=== PATIENT | male | born 1950 | race Caucasian/White ===

== ENCOUNTER 2018-04-26 10:15 | Inpatient (IN) | payer MEDICARE, BC ==
--- NOTE | 2018-04-25 16:23 | HP ---
HISTORY AND PHYSICAL DATE OF SURGERY: 04/26/2018 Hipolito Mary is a 67-year-old patient seen with painful left total knee arthroplasty, failing conservative treatment measures. Options were discussed with him. He elected to proceed with revision left total knee arthroplasty. Consent regarding the procedure was obtained. His preoperative medical clearance was provided Dr. Ansari. PAST MEDICAL HISTORY: Lcy-gneuupo-synkfddlk diabetes, hypertension, hyperlipidemia. PAST SURGICAL HISTORY: Left knee lateral unicompartmental arthroplasty. DAILY MEDICATIONS: Glipizide, Januvia, losartan, Metformin, simvastatin. ALLERGIES: None reported. SOCIAL HISTORY: The patient denies current tobacco use. PHYSICAL EXAMINATION: Evaluation of the left knee: His range of motion is -2/3 to 115 degrees. There is tenderness along the medial joint line. Crepitus medial patellofemoral compartment. Ligaments stable. Hip rotation without pain. Distal neurovascular exam is intact. Left knee radiographs reveal a lateral unicompartmental arthroplasty with moderate to severe medial compartment osteoarthritis and moderate to severe patellofemoral compartment osteoarthritis. IMPRESSION: 1. Painful left knee unicompartmental arthroplasty. 2. Hypertension. 3. Hyperlipidemia. 4. Lbs-bpblkkq-mirglbjdu diabetes. PLAN: Revision left total knee arthroplasty. MMODL / IJN: [id number] /
[~2018-04-26 10:15] MED LIST: ACETAMINOPHEN TAB 500 MG TAB PO ONE; DEXAMETHASONE SOD PHOSPHATE 10 MG/ML 1 ML VIAL IV ONE; HYDROmorphone 0.5 MG/0.5 ML SYRINGE IVP PRN; LACTATED RINGERS 1,000 ML IV SCH; MELOXICAM 7.5 MG TAB PO ONE; MIDAZOLAM (PF) 2 MG/2 ML VIAL IV PRN; ONDANSETRON 4 MG/2 ML VIAL IVP ONE; SCOPOLAMINE 1.5MG/72HR PATCH TRANSDERM ONE; ceFAZolin IN SWFI 2 GM/20 ML SYRINGE IVP ONE
[2018-04-26 11:51] LABS: Glucose,Whole Blood 180 mg/dL (75-99)
[2018-04-26] MEDS ORDERED: MIDAZOLAM (PF) 2 MG/2 ML VIAL IVP ONE (12:23)
[2018-04-26] MEDS ORDERED: fentaNYL (PF) 50 MCG/ML 2 ML AMP IVP ONE (12:23)
[2018-04-26] MEDS ORDERED: ROPIVACAINE 246.25 MG, EPINEPHrine 0.5 MG, KETOROLAC 30 MG, cloNIDine HCL/PF 80 MCG, WA... MISCELLANE ONE ×5 (14:06)
[2018-04-26] MEDS ORDERED: PROPOFOL 10 MG/ML 20 ML VIAL IV ONE (14:13)
[2018-04-26] MEDS ORDERED: ePHEDrine SULFATE/0.9% NACL/PF 50 MG/5 ML SYRINGE IV ONE (14:13)
[2018-04-26] MEDS ORDERED: fentaNYL (PF) 50 MCG/ML 2 ML AMP ONE (14:13)
[2018-04-26] MEDS ORDERED: MIDAZOLAM 2 MG/2 ML VIAL ONE (14:13)
[2018-04-26] MEDS ORDERED: TRANEXAMIC ACID 1,000 MG/10 ML VIAL ONE (14:13)
[2018-04-26] MEDS ORDERED: PHENYLEPHRINE-0.9% NACL SYG 1 MG/10 ML SYRINGE ONE (14:13)
[2018-04-26] MEDS ORDERED: SODIUM CHLORIDE 0.9% 100 ML BAG ONE (14:13)
[2018-04-26] MEDS: TRANEXAMIC ACID 1,000 MG in SODIUM CHLORIDE 0.9% 50 ML IVPB ONE ×6 (14:30→17:02)
[2018-04-26] MEDS ORDERED: ceFAZolin 3,000 MG in SODIUM CHLORIDE 0.9% IRRIGATIO 3,000 ML IRRIGATION ONE (14:30)
[2018-04-26] MEDS ORDERED: LACTATED RINGERS 1,000 ML IV ONE (14:53)
[2018-04-26] MEDS ORDERED: HYDROcodone/APAP 5-325MG 1 EACH TAB PO PRN (17:31)
[2018-04-26] MEDS ORDERED: NALOXONE 0.4 MG/ML 1 ML VIAL IV PRN (17:31)
[2018-04-26] MEDS ORDERED: HYDROmorphone 0.5 MG/0.5 ML SYRINGE IVP PRN ×2 (17:31)
[2018-04-26] MEDS ORDERED: ONDANSETRON 4 MG/2 ML VIAL IVP PRN (17:31)
--- NOTE | 2018-04-26 17:31 | P.OP ---
Date of Procedure: 04/26/18 Preoperative Diagnosis: Painful left knee lateral unicompartmental arthroplasty Postoperative Diagnosis: Same Procedure(s) Performed: Revision left total knee arthroplasty Implants: 1. Depuy Sigma femoral TC3 size 5 left cemented femur with medial and lateral 4 mm mm posterior augments 2. Depuy MTB revision size 4 cemented tibial tray with a 45 mm porous-coated metaphyseal sleeve and a 75 mm x 16 mm fluted stem 3. Depuy Sigma polyethylene rotating platform TC3 size 5 12.5 mm rotating platform tibial insert 4. Depuy oval dome patella 41 mm cemented Anesthesia: regional (Adductor canal catheter), local, spinal Surgeon: Ian Rock Mechanical Planner #1: Hakan Love Estimated Blood Loss (ml): 85 Pathology: other (Bone/femoral and tibial components) Condition: stable Disposition: PACU Indications for Procedure: 67-year-old patient seen with a painful left knee lateral unicompartmental arthroplasty. After we discussed treatment options, he elected to proceed with revision total knee arthroplasty. Operative Findings: see description of procedure Description of Procedure: The patient was taken to the operative suite. The patient underwent a spinal anesthetic by the department of anesthesia after having had placed and adductor canal catheter for postoperative pain control. The patient did receive preoperative IV antibiotics as well as TXA. The extremity was elevated and tourniquet insufflated to 300. A standard midline incision was made sharply through skin. Dissection was taken to the extensor mechanism. Medial arthrotomy was performed. The knee was flexed and patella everted. There was advanced osteoarthritis the medial compartment. There was significant osteophytes patellofemoral compartment. I removed the lateral femoral component was some bone loss. I remove the tibial polyethylene which left a fairly big deficit laterally. I began working on the femur reducing intramedullary guide and appropriate femoral cuts were made. I now made an appropriate box cut for prosthesis. I turned my attention to the tibia. We began reaming intramedullary into reached the appropriate size. I used a freshen up cut guide for the proximal tibia. I made sure was distal enough to help with that large lateral deficit. We then began broaching for our metaphyseal sleeve. Once I receive appropriate size was left in position. At this point I noted I would need 4 mm posterior augments off the posterior aspect of the femoral condyle both medial laterally. We now placed all trial components in position. The knee was taken through range of motion with full range of motion good overall stability. The patella was everted and a flush cut was made with patellar quad tendon. Appropriate size guide was position and appropriate drill holes were made. At this point all guides and trial components were removed. The wound was irrigated copiously with pulse lavage Irrigation. We did take a little time to remove the previous components into make our appropriate cuts and therefore at this point the tourniquet was released allowing some blood flow to the extremity. We opened up all the components and assembled them on the back table. Once allowing good blood flow and appropriate hemostasis the extremity was elevated and tourniquet was insufflated again to 300. We then mixed our antibiotic bone cement. We now introduced our tibial component position with just cement behind the tibial component. We then placed our appropriate size polyethylene rotating platform insert. We now cemented on our femoral component. We removed any excess methyl methacrylate. The patellar component was now cemented down and held in position. The wound was irrigated with pulse lavage mechanical irrigation. The extremity was held in extension until the methyl methacrylate completed hardened. At this point the tourniquet was released. We gave the patient second dose of TXA. Additional hemostasis was achieved via electrocautery. The wound was again irrigated with pulse lavage Irrigation. The extensor mechanism was repaired with #3 Vicryl. The repair was checked with range of motion on good stability and good repair. The subcu soft tissues repaired with 2-0 Vicryl. The skin was approximated with a running subcuticular stitch followed by pernio and Dermabond. Sterile dressings were applied. Followed by loose web bone Toy bandage. The patient was awakened and transferred to a bed and recovery stable condition. Chris POLLACK assisted with this complex procedure.
--- NOTE | 2018-04-26 18:11 | XR ---
PROCEDURE: XR knee limited LT - 2V DATE AND TIME: 04/26/2018 6:07 PM CLINICAL INDICATION: PHH; Evaluation for Postop abnormality and alignment TECHNIQUE: Department protocol COMPARISON: None FINDINGS: TKR is intact with anatomic positioning and alignment. Postprocedure changes noted, with no unexpected findings. IMPRESSION: Postop left knee 2 views
[2018-04-26] MEDS ORDERED: ROPIVACAINE 1,100 MG, SODIUM CHLORIDE 0.9% 500 ML 330 ML MISCELLANE PRN ×2 (18:50)
[2018-04-26] MEDS: traMADol 50 MG TAB PO SCH ×2 (19:04→21:25)
[2018-04-26 19:28] VITALS: BMI 25.7
[2018-04-26] MEDS ORDERED: ALBUTEROL NEBULIZED 2.5 MG/3 ML INHALATION PRN (19:30)
[2018-04-26] MEDS: HYDROcodone/APAP 5-325MG 1 EACH TAB PO PRN (19:52)
[2018-04-26] MEDS: METOPROLOL TARTRATE 50 MG TAB PO SCH (20:40)
[2018-04-26] MEDS: ATORVASTATIN 40 MG TAB PO SCH (20:40)
[2018-04-26] MEDS: ENOXAPARIN 30 MG/0.3 ML SYRINGE SQ SCH (20:40)
[2018-04-26] MEDS: SENNOSIDES-DOCUSATE SODIUM 1 EACH TAB PO SCH (20:40)
[2018-04-26] MEDS: LACTATED RINGERS 1,000 ML IV SCH (20:42)
[2018-04-26] MEDS: INSULIN ASPART 100 UNIT/ML 1 ML 10 ML VIAL SQ SCH (20:55)
[2018-04-26 21:04] LABS: Glucose,Whole Blood 254 mg/dL (75-99)
[2018-04-26] MEDS: ceFAZolin IN SWFI 2 GM/20 ML SYRINGE IVP SCH (23:44)
[2018-04-27] MEDS: LACTATED RINGERS 1,000 ML IV SCH ×3 (03:31→23:35)
[2018-04-27] MEDS: HYDROcodone/APAP 5-325MG 1 EACH TAB PO PRN ×3 (04:19→23:01)
[2018-04-27 07:02] LABS: Glucose,Whole Blood 199 mg/dL (75-99)
--- NOTE | 2018-04-27 07:11 | P.PN ---
Progress Note - Text Progress Note Date: 04/27/18 The patient is status post[ 1] adductor canal catheter placement. The catheter was placed for postoperative pain control, status post total [left knee] arthroplasty. Ropivacaine 0.2% is infusing at[ 4 ] mLs per hour. The patient has no complaints of[ left] lower extremity numbness or weakness. Patient's VAS score is[ 4 ]-10. Assessment: Patient's adductor canal catheter is in place and working appropriately. Plan: continue infusion and adjust it as needed.
[2018-04-27] MEDS: SPIRONOLACTONE 25 MG TAB PO SCH (08:06)
[2018-04-27] MEDS: MELOXICAM 7.5 MG TAB PO SCH (08:06)
[2018-04-27] MEDS: traMADol 50 MG TAB PO SCH ×4 (08:06→23:01)
[2018-04-27] MEDS: METOPROLOL TARTRATE 50 MG TAB PO SCH ×2 (08:06→20:14)
[2018-04-27] MEDS: ISOSORBIDE MONONITRATE ER 30 MG TAB.ER.24H PO SCH (08:06)
[2018-04-27] MEDS: FENOFIBRATE 160 MG TAB PO SCH (08:06)
[2018-04-27] MEDS: ENOXAPARIN 30 MG/0.3 ML SYRINGE SQ SCH ×2 (08:07→20:15)
[2018-04-27] MEDS: PANTOPRAZOLE 40 MG TABLET PO SCH (08:07)
[2018-04-27] MEDS: INSULIN ASPART 100 UNIT/ML 1 ML 10 ML VIAL SQ SCH ×4 (08:07→20:14)
[2018-04-27] MEDS: SIMETHICONE 80 MG CHEWABLE PO SCH ×3 (08:08→17:17)
[2018-04-27 08:28] LABS: Basophils % (A) 0 %; Eosinophils # (A) 0.1 k/uL (0-0.7); Eosinophils % (A) 1 %; HCT 28.6 % (39.0-53.0); HGB 9.4 gm/dL (13.0-17.5); Lymphocytes # (A) 1.4 k/uL (1.0-4.8); Lymphocytes % (A) 16 %; MCH 29.7 pg (25.0-35.0); Mean Platelet Volume 6.3; Monocytes # (A) 0.6 k/uL (0-1.0); Monocytes % (A) 6 %; Neutrophils # (A) 6.6 k/uL (1.3-7.7); Neutrophils % (A) 73 %; Platelet Count 260 k/uL (150-450); RBC 3.18 m/uL (4.30-5.90); RDW 14.3 % (11.5-15.5)
[2018-04-27] MEDS ORDERED: LOSARTAN 50 MG TAB PO SCH (09:00)
--- NOTE | 2018-04-27 12:05 | P.PN ---
Subjective Progress Note Date: 04/27/18 Principal diagnosis: Status post revision left total knee arthroplasty Patient evaluated at bedside today, he is resting comfortably. He has ambulated with physical therapy.. He denies any fevers or chills. Denies any chest pain or shortness of breath. Objective - Vital Signs Vital signs: Vital Signs Temp 98.4 F 04/27/18 00:46 Pulse 69 04/27/18 08:00 Resp 14 04/27/18 08:00 BP 101/58 04/27/18 00:46 Pulse Ox 93 L 04/27/18 00:46 Intake & Output 04/26/18 04/27/18 04/27/18 18:59 06:59 18:59 Intake Total 1721 Output Total 85 Balance 1636 Weight 96 kg Intake: IV 1721 Output: Estimated Blood Loss 85 - Exam Left lower extremity: Incision is clean, dry, and intact. The exofin fusion tape is in good condition. There is minimal soft tissue swelling and ecchymosis surrounding the medial and lateral aspects of the incision. Calf is soft, no tenderness with palpation. Plantar flexion, dorsiflexion, EHL, FHL are intact. Sensory exam to light touch throughout the extremity is intact, dorsal pedis pulses 2+. - Labs CBC & Chem 7: 04/27/18 07:30 Labs: Abnormal Lab Results - Last 24 Hours (Table) 04/26/18 04/27/18 04/27/18 Range/Units 20:52 06:50 07:30 RBC 3.18 L (4.30-5.90) m/uL Hgb 9.4 L (13.0-17.5) gm/dL Hct 28.6 L (39.0-53.0) % POC Glucose (mg/dL) 254 H 199 H (75-99) mg/dL Assessment and Plan Plan: Assessment: 1. Postop day 1 status post revision left total knee arthroplasty Plan: Pain control, continue current medication GI and DVT prophylaxis, continue current medication Wound care was discussed Continue work with physical therapy Encourage incentive spirometer Medical recommendations Discharge planning: Patient has multiple sets of stairs in his home. Patient's recently had shoulder surgery. Patient will need assistance with activities of daily living. Plan for discharge to rehab on 04/29/2018 Time with Patient: Less than 30
[2018-04-27] MEDS: LINAGLIPTIN 5 MG TABLET PO SCH (12:22)
[2018-04-27] MEDS: HYDROmorphone 0.5 MG/0.5 ML SYRINGE IVP PRN (12:22)
[2018-04-27] MEDS: ceFAZolin IN SWFI 2 GM/20 ML SYRINGE IVP SCH (12:26)
[2018-04-27 12:27] LABS: Glucose,Whole Blood 257 mg/dL (75-99)
--- NOTE | 2018-04-27 14:23 | P.CONS ---
History of Present Illness - Reason for Consult Recommenda regarding anti hypertensive cations and type 2 diabetes mellitu - History of Present Illness 67-year-old pleasant gentleman underwent the left knee arthroplasty. Patient doesn't have any surgical drain feeling well passed gas did not move his bowel. Patient denied any fever chills nausea vomiting chest pain dysuria. Does have multiple medical problems will be described below. Has some numbness in the surgical site area which is expected Review of Systems REVIEW OF SYSTEMS: CONSTITUTIONAL: No fever, no malaise, no fatigue. HEENT: No recent visual problems or hearing problems. Denied any sore throat. CARDIOVASCULAR: No chest pain, orthopnea, PND, no palpitations, no syncope. PULMONARY: No shortness of breath, no cough, no hemoptysis. GASTROINTESTINAL: No diarrhea, no nausea, no vomiting, no abdominal pain. NEUROLOGICAL: No headaches, no weakness, no numbness. HEMATOLOGICAL: Denies any bleeding or petechiae. GENITOURINARY: Denies any burning micturition, frequency, or urgency. MUSCULOSKELETAL/RHEUMATOLOGICAL: Denies any joint pain, swelling, or any muscle pain. ENDOCRINE: Denies any polyuria or polydipsia. The rest of the 14-point review of systems is negative. Past Medical History Past Medical History: Coronary Artery Disease (CAD), Diabetes Mellitus, Hyperlipidemia, Hypertension, Osteoarthritis (OA), Sleep Apnea/CPAP/BIPAP Additional Past Medical History / Comment(s): has cpap, "gas, frequent burping" , hx gout, History of Any Multi-Drug Resistant Organisms: None Reported Past Surgical History: Back Surgery, Heart Catheterization, Joint Replacement, Orthopedic Surgery, Prostate Surgery, Tonsillectomy Additional Past Surgical History / Comment(s): JUSTIN KNEE REPLACEMENT, JUSTIN CARPAL TUNNEL, justin shoulder ROTATOR CUFF, ANTERIOR TOTAL LEFT HIP; arteriogram , back surgery x 3 Past Anesthesia/Blood Transfusion Reactions: Previous Problems w/ Anesthesia Additional Past Anesthesia/Blood Transfusion Reaction / Comm: PT STATES WAS TOLD FROM PREVIOUS SX THAT IS DIFFICULT INTUBATION(one surgery > 20 yrs ago) AND NEEDS "SMALLER TUBE". Past Psychological History: No Psychological Hx Reported Smoking Status: Former smoker Past Alcohol Use History: Rare Additional Past Alcohol Use History / Comment(s): SMOKER AGE 20-40, 1 pack/week Past Drug Use History: None Reported - Past Family History Father Family Medical History: Cancer, Pulmonary Embolus Additional Family Medical History / Comment(s): brain Mother Family Medical History: Diabetes Mellitus Brother(s) Family Medical History: Diabetes Mellitus Medications and Allergies Home Medications Medication Instructions Recorded Confirmed Type Aspirin 81 mg PO DAILY 12/14/13 04/26/18 History Losartan Potassium 100 mg PO QAM 12/14/13 04/26/18 History Simvastatin [Zocor] 80 mg PO HS 12/14/13 04/26/18 History Spironolactone [Aldactone] 25 mg PO QAM 12/14/13 04/26/18 History glipiZIDE [Glucotrol] 20 mg PO BID-W/MEALS 12/14/13 04/26/18 History metFORMIN HCL 1,000 mg PO BID-W/MEALS 12/14/13 04/26/18 History Omeprazole [PriLOSEC] 20 mg PO BID 02/12/15 04/26/18 History Albuterol Inhaler [Ventolin Hfa 1 - 2 puff INHALATION RT-Q6H PRN 03/09/17 History Inhaler] Fenofibrate Nanocrystallized 145 mg PO DAILY 03/09/17 04/26/18 History [Fenofibrate] Metoprolol Tartrate [Lopressor] 100 mg PO BID 03/09/17 04/26/18 History Saxagliptin HCl [Onglyza] 5 mg PO AC-LUNCH 03/09/17 04/26/18 History Isosorbide Mononitrate ER [Imdur] 30 mg PO DAILY 04/19/18 04/26/18 History Simethicone Chew [Mylicon Chew] 160 mg PO AC-TID 04/19/18 04/26/18 History Hydrocodone/Acetaminophen [[place] 1 tab PO Q6H PRN 04/26/18 04/26/18 History 10-325] Allergies Allergy/AdvReac Type Severity Reaction Status Date / Time No Known Allergies Allergy Verified 04/26/18 18:37 Physical Exam Vitals: Vital Signs Temp Pulse Resp BP Pulse Ox 04/27/18 08:00 69 14 04/27/18 07:00 97.6 F 64 16 130/67 96 04/27/18 03:49 69 14 04/27/18 00:46 98.4 F 69 14 101/58 93 L 01/22/19 00:00 18 04/26/18 20:30 81 121/57 04/26/18 20:15 88 106/57 04/26/18 20:00 83 121/63 04/26/18 19:45 77 110/59 04/26/18 19:30 91 117/75 04/26/18 19:15 82 116/62 04/26/18 19:00 79 120/58 04/26/18 18:45 85 102/57 04/26/18 18:28 98.3 F 84 118/56 94 L 04/26/18 18:15 83 18 109/54 95 04/26/18 18:00 88 16 124/59 95 04/26/18 17:45 99.0 F 86 16 121/58 95 Intake and Output 04/26/18 04/27/18 04/27/18 22:59 06:59 14:59 Intake Total 60 Output Total 85 Balance -25 Intake: IV 60 Output: Estimated Blood Loss 85 Other: Weight 96 kg PHYSICAL EXAMINATION: GENERAL: The patient is alert and oriented x3, not in any acute distress. Well developed, well nourished. HEENT: Pupils are round and equally reacting to light. EOMI. No scleral icterus. No conjunctival pallor. Normocephalic, atraumatic. No pharyngeal erythema. No thyromegaly. CARDIOVASCULAR: S1 and S2 present. No murmurs, rubs, or gallops. PULMONARY: Chest is clear to auscultation, no wheezing or crackles. ABDOMEN: Soft, nontender, nondistended, normoactive bowel sounds. No palpable organomegaly. MUSCULOSKELETAL: No joint swelling or deformity. EXTREMITIES: Deffered to orthopedic surgery NEUROLOGICAL: Gross neurological examination did not reveal any focal deficits. SKIN: No rashes. Results CBC & Chem 7: 04/27/18 07:30 Labs: Abnormal Lab Results - Last 24 Hours (Table) 04/26/18 04/27/18 04/27/18 Range/Units 20:52 06:50 07:30 RBC 3.18 L (4.30-5.90) m/uL Hgb 9.4 L (13.0-17.5) gm/dL Hct 28.6 L (39.0-53.0) % POC Glucose (mg/dL) 254 H 199 H (75-99) mg/dL 04/27/18 Range/Units 12:16 RBC (4.30-5.90) m/uL Hgb (13.0-17.5) gm/dL Hct (39.0-53.0) % POC Glucose (mg/dL) 257 H (75-99) mg/dL Assessment and Plan Plan: -Postoperative day 1 left knee arthroplasty: Pain management due to prophylaxis as per primary service. -Coronary artery disease -Hypertension will continue with beta jayden but will cut down the losartan to 50 mg daily to prevent perioperative hypotension -Type 2 diabetes mellitus as patient is eating now patient will be initiated back on his oral hypoglycemic agents recheck his blood sugars discharge regimen will be decided on depending on his blood sugars here -Hyperlipidemia -Gastroesophageal reflux disease -Hyperlipidemia -Sleep apnea: Patient will continue his CPAP machine For above-mentioned chronic medical problems patient will be resumed on appropriate medication, medication reconciliation was done.
[2018-04-27 17:04] LABS: Glucose,Whole Blood 263 mg/dL (75-99)
[2018-04-27] MEDS: metFORMIN 500 MG TAB PO SCH (17:18)
[2018-04-27 20:00] LABS: Glucose,Whole Blood 237 mg/dL (75-99)
[2018-04-27] MEDS: ATORVASTATIN 40 MG TAB PO SCH (20:14)
[2018-04-27] MEDS: SENNOSIDES-DOCUSATE SODIUM 1 EACH TAB PO SCH (20:14)
[2018-04-28] MEDS: HYDROcodone/APAP 5-325MG 1 EACH TAB PO PRN ×2 (05:34→20:36)
--- NOTE | 2018-04-28 05:36 | P.PN ---
Progress Note - Text Progress Note Date: 04/28/18 Patient is postop day 2 catheter day #3 from total knee replacement. Pain is well controlled. Patient stated in the hospital because he lives 3 hours away and will likely be going home today. He denies any lower extremity numbness tingling or pain. Pump is working well. He is able to ambulate and his bowel and bladder function have returned, his site of the catheter is clean and dry
[2018-04-28 07:23] LABS: Glucose,Whole Blood 191 mg/dL (75-99)
[2018-04-28] MEDS: SIMETHICONE 80 MG CHEWABLE PO SCH ×3 (07:38→17:23)
[2018-04-28] MEDS: SPIRONOLACTONE 25 MG TAB PO SCH (07:38)
[2018-04-28] MEDS: PANTOPRAZOLE 40 MG TABLET PO SCH (07:38)
[2018-04-28] MEDS: metFORMIN 500 MG TAB PO SCH ×2 (07:38→17:23)
[2018-04-28] MEDS: METOPROLOL TARTRATE 50 MG TAB PO SCH ×2 (07:39→20:36)
[2018-04-28] MEDS: MELOXICAM 7.5 MG TAB PO SCH (07:39)
[2018-04-28] MEDS: traMADol 50 MG TAB PO SCH ×3 (07:39→17:23)
[2018-04-28] MEDS: ISOSORBIDE MONONITRATE ER 30 MG TAB.ER.24H PO SCH ×2 (07:39→07:40)
[2018-04-28] MEDS: ENOXAPARIN 30 MG/0.3 ML SYRINGE SQ SCH ×2 (07:40→20:35)
[2018-04-28] MEDS: INSULIN ASPART 100 UNIT/ML 1 ML 10 ML VIAL SQ SCH ×4 (07:40→20:37)
[2018-04-28] MEDS: FENOFIBRATE 160 MG TAB PO SCH (07:40)
[2018-04-28] MEDS ORDERED: LOSARTAN 50 MG TAB PO SCH (09:00)
--- NOTE | 2018-04-28 10:32 | P.PN ---
Subjective Progress Note Date: 04/28/18 Principal diagnosis: Status post revision left total knee arthroplasty Patient evaluated at bedside today, he is resting comfortably. He has ambulated with physical therapy.. He denies any fevers or chills. Denies any chest pain or shortness of breath. Objective - Vital Signs Vital signs: Vital Signs Temp 99.1 F 04/28/18 07:38 Pulse 73 04/28/18 08:00 Resp 16 04/28/18 08:00 BP 159/64 04/28/18 07:38 Pulse Ox 95 04/28/18 07:38 Intake & Output 04/27/18 04/28/18 04/28/18 18:59 06:59 18:59 Intake Total 1180 240 Balance 1180 240 Intake: Oral 1180 240 Other: Voiding Method Toilet Toilet # Voids 3 - Exam Left lower extremity: Incision is clean, dry, and intact. The exofin fusion tape is in good condition. There is minimal soft tissue swelling and ecchymosis surrounding the medial and lateral aspects of the incision. Calf is soft, no tenderness with palpation. Plantar flexion, dorsiflexion, EHL, FHL are intact. Sensory exam to light touch throughout the extremity is intact, dorsal pedis pulses 2+. - Labs CBC & Chem 7: 04/27/18 07:30 Labs: Abnormal Lab Results - Last 24 Hours (Table) 04/27/18 04/27/18 04/27/18 Range/Units 12:16 16:52 19:48 POC Glucose (mg/dL) 257 H 263 H 237 H (75-99) mg/dL 04/28/18 Range/Units 07:11 POC Glucose (mg/dL) 191 H (75-99) mg/dL Assessment and Plan Plan: Assessment: 1. Postop day #2 status post revision left total knee arthroplasty Plan: Pain control, continue current medication GI and DVT prophylaxis, continue current medication Wound care was discussed Continue work with physical therapy Encourage incentive spirometer Medical recommendations Discharge planning: Patient has multiple sets of stairs in his home. Patient's recently had shoulder surgery. Patient will need assistance with activities of daily living. Plan for discharge to rehab on 04/29/2018 Time with Patient: Less than 30
[2018-04-28 11:51] LABS: Glucose,Whole Blood 215 mg/dL (75-99)
[2018-04-28] MEDS: LINAGLIPTIN 5 MG TABLET PO SCH (12:09)
[2018-04-28] MEDS: HYDROmorphone 0.5 MG/0.5 ML SYRINGE IVP PRN ×2 (12:10→18:25)
--- NOTE | 2018-04-28 12:10 | P.PN ---
Subjective patient is comparing of more pain in the left knee area and he was advised to use ice. Constitutional: Denied any fatigue denied any fever. Cardio vascular: denied any chest pain, palpitations Gastrointestinal denied any nausea vomiting Pulmonary: Denied any shortness of breath cough Neurologic denied any new focal deficits All inpatient medications were reviewed and appropriate changes in these medications as dictated in the interval history and assessment and plan. Objective - Vital Signs Vital signs: Vital Signs Temp 99.1 F 04/28/18 07:38 Pulse 73 04/28/18 08:00 Resp 16 04/28/18 08:00 BP 159/64 04/28/18 07:38 Pulse Ox 95 04/28/18 07:38 Intake & Output 04/27/18 04/28/18 04/28/18 18:59 06:59 18:59 Intake Total 1180 240 Balance 1180 240 Intake: Oral 1180 240 Other: Voiding Method Toilet Toilet # Voids 3 - Exam PHYSICAL EXAMINATION: GENERAL: The patient is alert and oriented x3, not in any acute distress. Well developed, well nourished. HEENT: Pupils are round and equally reacting to light. EOMI. No scleral icterus. No conjunctival pallor. Normocephalic, atraumatic. No pharyngeal erythema. No thyromegaly. CARDIOVASCULAR: S1 and S2 present. No murmurs, rubs, or gallops. PULMONARY: Chest is clear to auscultation, no wheezing or crackles. ABDOMEN: Soft, nontender, nondistended, normoactive bowel sounds. No palpable organomegaly. MUSCULOSKELETAL: No joint swelling or deformity. EXTREMITIES: Deffered to orthopedic surgery NEUROLOGICAL: Gross neurological examination did not reveal any focal deficits. SKIN: No rashes. - Labs CBC & Chem 7: 04/27/18 07:30 Labs: Abnormal Lab Results - Last 24 Hours (Table) 04/27/18 04/27/18 04/27/18 Range/Units 12:16 16:52 19:48 POC Glucose (mg/dL) 257 H 263 H 237 H (75-99) mg/dL 04/28/18 04/28/18 Range/Units 07:11 11:39 POC Glucose (mg/dL) 191 H 215 H (75-99) mg/dL Assessment and Plan Plan: -Postoperative day 2 left knee arthroplasty: Pain management due to prophylaxis as per primary service. -Coronary artery disease -Hypertension patient blood pressures okay patient will be resumed back on his home regimen -Type 2 diabetes mellitus blood sugars are elevated patient was resumed on his home medications including glipizide -Hyperlipidemia -Gastroesophageal reflux disease -Hyperlipidemia -Sleep apnea: Patient will continue his CPAP machine For above-mentioned chronic medical problems patient will be resumed on appropriate medication, medication reconciliation was done.
[2018-04-28 17:17] LABS: Glucose,Whole Blood 201 mg/dL (75-99)
[2018-04-28] MEDS: glipiZIDE 10 MG TAB PO SCH (17:23)
[2018-04-28 20:16] LABS: Glucose,Whole Blood 147 mg/dL (75-99)
[2018-04-28] MEDS: ATORVASTATIN 40 MG TAB PO SCH (20:36)
[2018-04-28] MEDS: SENNOSIDES-DOCUSATE SODIUM 1 EACH TAB PO SCH (20:37)
[2018-04-29] MEDS: HYDROmorphone 0.5 MG/0.5 ML SYRINGE IVP PRN ×2 (03:39→11:23)
[2018-04-29] MEDS: traMADol 50 MG TAB PO SCH ×3 (04:17→12:48)
[2018-04-29 07:04] LABS: Glucose,Whole Blood 169 mg/dL (75-99)
[2018-04-29 07:25] VITALS: BP 124/55; PULSE 85; RESP 17; TEMP 99
[2018-04-29] MEDS: LACTATED RINGERS 1,000 ML IV SCH ×2 (07:42→07:43)
[2018-04-29 08:17] LABS: Basophils # (A) 0.1 k/uL (0-0.2); Basophils % (A) 1 %; Eosinophils # (A) 0.3 k/uL (0-0.7); Eosinophils % (A) 3 %; HCT 32.4 % (39.0-53.0); HGB 10.4 gm/dL (13.0-17.5); Lymphocytes # (A) 1.5 k/uL (1.0-4.8); Lymphocytes % (A) 17 %; MCH 28.7 pg (25.0-35.0); MCV 89.9 fL (80.0-100.0); Mean Platelet Volume 6.4; Monocytes # (A) 0.6 k/uL (0-1.0); Monocytes % (A) 6 %; Neutrophils % (A) 69 %; Platelet Count 278 k/uL (150-450); RBC 3.61 m/uL (4.30-5.90); WBC 8.7 k/uL (3.8-10.6)
[2018-04-29] MEDS: glipiZIDE 10 MG TAB PO SCH (08:22)
[2018-04-29] MEDS: INSULIN ASPART 100 UNIT/ML 1 ML 10 ML VIAL SQ SCH ×2 (08:22→12:47)
[2018-04-29] MEDS: metFORMIN 500 MG TAB PO SCH (08:22)
[2018-04-29] MEDS: FENOFIBRATE 160 MG TAB PO SCH (08:23)
[2018-04-29] MEDS: PANTOPRAZOLE 40 MG TABLET PO SCH (08:23)
[2018-04-29] MEDS: SIMETHICONE 80 MG CHEWABLE PO SCH ×2 (08:23→12:48)
[2018-04-29] MEDS: ENOXAPARIN 30 MG/0.3 ML SYRINGE SQ SCH (08:23)
[2018-04-29] MEDS: MELOXICAM 7.5 MG TAB PO SCH (08:24)
[2018-04-29] MEDS: METOPROLOL TARTRATE 50 MG TAB PO SCH (08:24)
[2018-04-29] MEDS: SPIRONOLACTONE 25 MG TAB PO SCH (08:25)
[2018-04-29] MEDS: HYDROcodone/APAP 5-325MG 1 EACH TAB PO PRN ×2 (08:25→14:05)
[2018-04-29] MEDS ORDERED: LOSARTAN 50 MG TAB PO SCH (09:00)
[2018-04-29 12:08] LABS: Glucose,Whole Blood 220 mg/dL (75-99)
--- NOTE | 2018-04-29 12:38 | P.PN ---
Progress Note - Text Anesthesia POD 3. Patient is status post left TKR under spinal anesthesia with a left adductor canal catheter placed for postoperative pain relief. With ropivacaine 0.2% running at 8 cc's per hour, the patient's VAS was (1, 3). Infusion is now complete. Patient is scheduled to go home today nursing will remove the catheter. Catheter site is clean dry and intact.
[2018-04-29] MEDS: LINAGLIPTIN 5 MG TABLET PO SCH (12:48)
--- NOTE | 2018-04-29 13:33 | P.PN ---
Subjective patient is comparing of more pain in the left knee area and he was advised to use ice. 04/29/2018 Patient still has bit of pain in the right knee no other significant overnight events. Potassium within normal limits after supplementation. Patient is diabetic his hemoglobin A1c is elevated to 7.3 Constitutional: Denied any fatigue denied any fever. Cardio vascular: denied any chest pain, palpitations Gastrointestinal denied any nausea vomiting Pulmonary: Denied any shortness of breath cough Neurologic denied any new focal deficits All inpatient medications were reviewed and appropriate changes in these medications as dictated in the interval history and assessment and plan. Objective - Vital Signs Vital signs: Vital Signs Temp 99 F 04/29/18 07:00 Pulse 85 04/29/18 07:00 Resp 17 04/29/18 07:00 BP 124/55 04/29/18 07:00 Pulse Ox 95 04/29/18 07:00 Intake & Output 04/28/18 04/29/18 04/29/18 18:59 06:59 18:59 Intake Total 375 900 Balance 375 900 Intake: Oral 375 900 Other: Voiding Method Toilet Toilet Toilet # Voids 4 2 2 - Exam PHYSICAL EXAMINATION: GENERAL: The patient is alert and oriented x3, not in any acute distress. Well developed, well nourished. HEENT: Pupils are round and equally reacting to light. EOMI. No scleral icterus. No conjunctival pallor. Normocephalic, atraumatic. No pharyngeal erythema. No thyromegaly. CARDIOVASCULAR: S1 and S2 present. No murmurs, rubs, or gallops. PULMONARY: Chest is clear to auscultation, no wheezing or crackles. ABDOMEN: Soft, nontender, nondistended, normoactive bowel sounds. No palpable organomegaly. MUSCULOSKELETAL: No joint swelling or deformity. EXTREMITIES: Deffered to orthopedic surgery NEUROLOGICAL: Gross neurological examination did not reveal any focal deficits. SKIN: No rashes. - Labs CBC & Chem 7: 04/29/18 07:55 Labs: Abnormal Lab Results - Last 24 Hours (Table) 04/28/18 04/28/18 04/29/18 Range/Units 17:06 20:05 06:52 RBC (4.30-5.90) m/uL Hgb (13.0-17.5) gm/dL Hct (39.0-53.0) % POC Glucose (mg/dL) 201 H 147 H 169 H (75-99) mg/dL 04/29/18 04/29/18 Range/Units 07:55 11:55 RBC 3.61 L (4.30-5.90) m/uL Hgb 10.4 L (13.0-17.5) gm/dL Hct 32.4 L (39.0-53.0) % POC Glucose (mg/dL) 220 H (75-99) mg/dL Assessment and Plan Plan: -Postoperative day 3 left knee arthroplasty: Pain management due to prophylaxis as per primary service. Os will day of discharge tomorrow -Coronary artery disease -Hypertension patient blood pressures okay patient will be resumed back on his home regimen -Type 2 diabetes mellitus blood sugars are elevated patient was resumed on his home medications including glipizide -Hypertension: Patient can be resumed on his losartan upon discharge by the time I'm expecting his blood sugars will get better. -Gastroesophageal reflux disease -Hyperlipidemia -Sleep apnea: Patient will continue his CPAP machine For above-mentioned chronic medical problems patient will be resumed on appropriate medication, medication reconciliation was done.
[2018-04-29] MEDS ORDERED: HYDROmorphone 2 MG TAB PO PRN ×3 (13:40→13:44)
--- NOTE | 2018-04-29 14:41 | P.PN ---
Subjective Progress Note Date: 04/29/18 Principal diagnosis: Status post revision left total knee arthroplasty Patient evaluated at bedside today, he is resting comfortably. He has ambulated with physical therapy.. He denies any fevers or chills. Denies any chest pain or shortness of breath. Objective - Vital Signs Vital signs: Vital Signs Temp 99 F 04/29/18 07:00 Pulse 85 04/29/18 07:00 Resp 17 04/29/18 07:00 BP 124/55 04/29/18 07:00 Pulse Ox 95 04/29/18 07:00 Intake & Output 04/28/18 04/29/18 04/29/18 18:59 06:59 18:59 Intake Total 375 900 Balance 375 900 Intake: Oral 375 900 Other: Voiding Method Toilet Toilet Toilet # Voids 4 2 1 - Exam Left lower extremity: Incision is clean, dry, and intact. The exofin fusion tape is in good condition. There is minimal soft tissue swelling and ecchymosis surrounding the medial and lateral aspects of the incision. Calf is soft, no tenderness with palpation. Plantar flexion, dorsiflexion, EHL, FHL are intact. Sensory exam to light touch throughout the extremity is intact, dorsal pedis pulses 2+. - Labs CBC & Chem 7: 04/29/18 07:55 Labs: Abnormal Lab Results - Last 24 Hours (Table) 04/28/18 04/28/18 04/29/18 Range/Units 17:06 20:05 06:52 RBC (4.30-5.90) m/uL Hgb (13.0-17.5) gm/dL Hct (39.0-53.0) % POC Glucose (mg/dL) 201 H 147 H 169 H (75-99) mg/dL 04/29/18 04/29/18 Range/Units 07:55 11:55 RBC 3.61 L (4.30-5.90) m/uL Hgb 10.4 L (13.0-17.5) gm/dL Hct 32.4 L (39.0-53.0) % POC Glucose (mg/dL) 220 H (75-99) mg/dL Assessment and Plan Plan: Assessment: 1. Postop day #3 status post revision left total knee arthroplasty Plan: Pain control, dc on oral medications GI and DVT prophylaxis, dc on aspirin 81mg bid Wound care was discussed Continue work with physical therapy Encourage incentive spirometer Medical recommendations Discharge planning: plan for dc to rehab today Time with Patient: Less than 30
--- NOTE | 2018-04-29 14:46 | P.DS ---
Providers Date of admission: 04/26/18 11:09 Expected date of discharge: 04/29/18 Attending physician: Ian Rock Consults: 04/26/18 17:31 Consult Physician Routine Consulting Provider: Ria Donahue Consult Reason/Comments: Medical management Do you want consulting provider notified?: Yes Primary care physician: Gabriel Ansari MD Hospital Course: Date of admission: 04/26/2018 Date of discharge: 04/29/2018 Admission diagnosis: Status post revision left total knee arthroplasty Discharge diagnosis: Same Attending physician: Dr. Rock Surgical procedures: Revision left total knee arthroplasty Brief history: Patient is a 67-year-old male with a history of a progressively painful left knee lateral unicompartmental arthroplasty. At this point patient has failed conservative treatment measures and has opted to proceed with a elective revision left total knee arthroplasty. Hospital course: Details of patient's surgery can be found in operative report. Patient tolerated the procedure well and was subsequently transported to orthopedic floor. Patient's orthopeidc and medical care was provided daily. Patient had daily laboratory tests performed for evaluation of overall blood counts. Patient had daily physical therapy to include strengthening range of motion as well as education with walker ambulation. Patient had daily CPM usage as part of their physical therapy program. Patient was treated with Lovenox for their postoperative DVT prophylaxis during their inpatient stay. Patient was noted to have a relatively uneventful postoperative course. Patient reported satisfactory pain control with oral pain medications by postoperative day 0. Patient showed satisfactory progress with physical therapy. Patient moved steadily through the program and had no difficulty meeting the goals by postoperative day 3. Given patient's otherwise satisfactory course and having met physical therapy goals, plan is to discharge patient rehab on postoperative day 3. Discharge condition/disposition: Patient will be discharged rehab in stable condition. Discharge medications: Instructions are given on resumption of patient's normal daily medications per primary care recommendation, in addition patient will be prescribed [place] 5mg/325mg, aspirin 81mg, tramadol 50mg, Colace 100mg. Discharge instructions: 1. Wound care and infection precautions, keep incision dry and covered while showering, no lotions, creams, moisturizers. No soaking, tubs, pools, hottubs. Do not scrub over the incision. 2. Weight-bear as tolerated with walker / cane until follow-up. 3. Ice and elevate when necessary. Do not exceed 20 minutes per hour with ice pack. 4. Utilize compression sleeve until seen at first follow up appointment. 5. Visiting nursing care. 6. Home physical therapy including home CPM. 7. Pain meds and anticoagulants per prescription. 8. Pain medication has potential to cause constipation. Increase oral fluid and fiber intake. Contact primary care provider if you have not had a bowel movement within 48 hours after discharge 9. No anti-inflammatory medication until discussed at first post operative visit, this including Motrin, Aleve, Mobic, Diclofenac. 10. Follow up in office at 2 weeks postop with Chris Love PA-C 11. Follow up with your primary care doctor 7-10 days after discharge. 12. Contact [facility] with any questions, . Procedures: Revision left total knee arthroplasty Patient Condition at Discharge: Good Plan - Discharge Summary Discharge Rx Participant: Yes New Discharge Prescriptions: New Aspirin [Adult Low Dose Aspirin EC] 81 mg PO BID #60 tablet. Docusate [Colace] 100 mg PO DAILY #30 capsule Hydrocodone/Acetaminophen [[place] 10-325] 1 - 2 each PO Q6H PRN #56 tab PRN Reason: Pain traMADol HCl [Ultram] 50 mg PO Q6H PRN #28 tab PRN Reason: Pain No Action metFORMIN HCL 1,000 mg PO BID-W/MEALS glipiZIDE [Glucotrol] 20 mg PO BID-W/MEALS Spironolactone [Aldactone] 25 mg PO QAM Simvastatin [Zocor] 80 mg PO HS Losartan Potassium 100 mg PO QAM Omeprazole [PriLOSEC] 20 mg PO BID Fenofibrate Nanocrystallized [Fenofibrate] 145 mg PO DAILY Metoprolol Tartrate [Lopressor] 100 mg PO BID Saxagliptin HCl [Onglyza] 5 mg PO AC-LUNCH Albuterol Inhaler [Ventolin Hfa Inhaler] 1 - 2 puff INHALATION RT-Q6H PRN PRN Reason: Dyspnea Simethicone Chew [Mylicon Chew] 160 mg PO AC-TID Hydrocodone/Acetaminophen [[place] 10-325] 1 tab PO Q6H PRN PRN Reason: Pain Discharge Medication List Losartan Potassium 100 mg PO QAM 12/14/13 [History] Simvastatin [Zocor] 80 mg PO HS 12/14/13 [History] Spironolactone [Aldactone] 25 mg PO QAM 12/14/13 [History] glipiZIDE [Glucotrol] 20 mg PO BID-W/MEALS 12/14/13 [History] metFORMIN HCL 1,000 mg PO BID-W/MEALS 12/14/13 [History] Omeprazole [PriLOSEC] 20 mg PO BID 02/12/15 [History] Albuterol Inhaler [Ventolin Hfa Inhaler] 1 - 2 puff INHALATION RT-Q6H PRN [History] Fenofibrate Nanocrystallized [Fenofibrate] 145 mg PO DAILY 03/09/17 [History] Metoprolol Tartrate [Lopressor] 100 mg PO BID 03/09/17 [History] Saxagliptin HCl [Onglyza] 5 mg PO AC-LUNCH 03/09/17 [History] Simethicone Chew [Mylicon Chew] 160 mg PO AC-TID 04/19/18 [History] Hydrocodone/Acetaminophen [[place] 10-325] 1 tab PO Q6H PRN 04/26/18 [History] Aspirin [Adult Low Dose Aspirin EC] 81 mg PO BID #60 tablet. 04/29/18 [Rx] Docusate [Colace] 100 mg PO DAILY #30 capsule 04/29/18 [Rx] Hydrocodone/Acetaminophen [[place] 10-325] 1 - 2 each PO Q6H PRN #56 tab 04/29/18 [Rx] traMADol HCl [Ultram] 50 mg PO Q6H PRN #28 tab 04/29/18 [Rx] Follow up Appointment(s)/Referral(s): [facility], [NON-STAFF] - As Needed Hakan Love PAC [PHYSIC[facility] [employer]] - 2 Weeks Activity/Diet/Wound Care/Special Instructions: Orthopedic Discharge Instructions: 1. Wound care and infection precautions, keep incision dry and covered while showering, no lotions, creams, moisturizers. No soaking, pools, hot tubs. Do not scrub over incision. 2. Weight-bear as tolerated with walker / cane until follow-up. 3. Ice and elevate when necessary. Do not exceed 20 minutes per hour with ice pack. 4. Utilize compression sleeve until seen at first follow up appointment. 5. Pain meds and anticoagulants per prescription. 6. Pain medication has potential to cause constipation. Increase oral fluid and fiber intake. Contact primary care provider if you have not had a bowel movement within 48 hours after discharge. 7. No anti-inflammatory medication until discussed at first post operative visit, this including Motrin, Aleve, Mobic, Diclofenac. 8. Follow up in office at 2 weeks postop with Chris Love PA-C 9. Follow up with your primary care doctor 7-10 days after discharge. 10. Contact [facility] with any questions, . Discharge Disposition: TRANSFER TO SNF/ECF
== END 2018-04-29 16:08 | DRG 468 ==
LOC: 2ORMAIN 11:09 → 4SSUR 17:56
PROVIDERS: ADMIT Orthopaedic Surgery; ATTEND Orthopaedic Surgery
PROC: 0SRD0J9 Replacement of Left Knee Joint with Synthetic Substitute, Cemented, Open Approach (ICD-10-PCS; principal; 2018-04-26 13:05)
PROC: 0SPD0JZ Removal of Synthetic Substitute from Left Knee Joint, Open Approach (ICD-10-PCS; principal; 2018-04-26 13:05)
DX: T84.84XA Pain due to internal orthopedic prosthetic devices, implants and grafts, initial encounter (principal); Y79.2 Prosthetic and other implants, materials and accessory orthopedic devices associated with adverse incidents; M17.12 Unilateral primary osteoarthritis, left knee; M25.762 Osteophyte, left knee; E11.9 Type 2 diabetes mellitus without complications; E78.5 Hyperlipidemia, unspecified; G47.30 Sleep apnea, unspecified; I10 Essential (primary) hypertension; I25.10 Atherosclerotic heart disease of native coronary artery without angina pectoris; Y83.1 Surgical operation with implant of artificial internal device as the cause of abnormal reaction of the patient, or of later complication, without mention of misadventure at the time of the procedure; Z96.653 Presence of artificial knee joint, bilateral; Z79.82 Long term (current) use of aspirin; Z79.84 Long term (current) use of oral hypoglycemic drugs; Z79.899 Other long term (current) drug therapy; Z83.3 Family history of diabetes mellitus; Z87.891 Personal history of nicotine dependence; Z99.89 Dependence on other enabling machines and devices
CPT/HCPCS: 85025; 88300